=== PATIENT | female | born 2000 | race African-American/Black ===

== ENCOUNTER 2021-04-26 08:24 | Emergency (ER) | payer MEDICAID ==
[~2021-04-26] VITALS: Ht 162.6 cm; Wt 73.0 kg
[2021-04-26 08:27] VITALS: BP 123/84
[2021-04-26 08:50] LABS: BASOPHILS % 0.3 % (0.0-2.0); HEMATOCRIT. 39.6 % (36.0-48.0); HEMOGLOBIN. 13.7 g/dL (12.0-16.0); LYMPHOCYTES % 22.3 % (20.0-50.0); MEAN CORPUSCULAR HEMOGLOBIN 30.6 pg (28.0-32.0); MEAN CORPUSCULAR VOLUME 88.6 fL (81.0-99.0); MONOCYTES % 4.4 % (2.0-8.0); PLATELET 262 x1000/uL (130-400); RED BLOOD CELL COUNT 4.48 mill/uL (4.2-5.4); RED CELL DISTRIBUTION WIDTH 13.2 % (11.6-14.6)
[2021-04-26] MEDS ORDERED: KETOROLAC 60MG/2ML VIAL IM ONE (09:15)
[2021-04-26] MEDS ORDERED: IBUP-2029 MT (09:36)
== END 2021-04-26 09:46 | disposition home or self-care (01) ==
LOC: ER 08:29
DX: S09.90XA Unspecified injury of head, initial encounter (principal); R59.1 Generalized enlarged lymph nodes; M54.2 Cervicalgia; W22.8XXA Striking against or struck by other objects, initial encounter; Y93.89 Activity, other specified; Y92.89 Other specified places as the place of occurrence of the external cause; Y99.8 Other external cause status
CPT/HCPCS: 36415; 70450; 72125; 85025; 96372; 99285; J1885

== ENCOUNTER 2021-04-29 10:30 | Emergency (ER) | payer MEDICAID ==
[~2021-04-29] VITALS: Ht 162.6 cm; Wt 73.0 kg
[~2021-04-29 10:30] MED LIST: IBUP-2029 MT
[2021-04-29 10:35] VITALS: BP 110/66
[2021-04-29] MEDS ORDERED: BACITRACIN ZINC OINT UDPKT TOP ONE (11:15)
[2021-04-29] MEDS ORDERED: LIDOCAINE HCL/PF 1% 10 MG/ML 5ML VIAL IJ ONE (11:15)
[2021-04-29] MEDS ORDERED: SULF1TAB48 PO (11:58)
[2021-04-29] MEDS ORDERED: CEPH500T PO (11:58)
[2021-04-29] MEDS ORDERED: IBUP-2029 MT (11:58)
== END 2021-04-29 12:05 | disposition home or self-care (01) ==
LOC: ER 10:30
DX: L02.811 Cutaneous abscess of head [any part, except face] (principal)
CPT/HCPCS: 99283; J3490; Z7610

== ENCOUNTER 2021-05-01 12:17 | Emergency (ER) | payer MEDICAID ==
[~2021-05-01] VITALS: Ht 162.6 cm; Wt 73.0 kg
[~2021-05-01 12:17] MED LIST changes: +CEPH500T PO; +SULF1TAB48 PO
[2021-05-01 13:13] VITALS: BP 112/70
== END 2021-05-01 13:14 | disposition home or self-care (01) ==
LOC: ER 12:17
DX: Z48.00 Encounter for change or removal of nonsurgical wound dressing (principal)
CPT/HCPCS: 99281

== ENCOUNTER 2021-06-15 11:11 | Emergency (ER) | payer OTHER, MEDICAID ==
[~2021-06-15] VITALS: Ht 162.6 cm; Wt 73.0 kg
[2021-06-15 11:40] VITALS: BP 145/82
[2021-06-15] MEDS ORDERED: BACITRACIN ZINC OINT UDPKT TOP ONE (12:00)
[2021-06-15] MEDS ORDERED: LIDOCAINE HCL/EPINEPHRINE 1%-EPI 1:100,000 20 ML VIAL INFIL ONE (12:00)
[2021-06-15] MEDS ORDERED: SULF1TAB48 MT (13:00)
[2021-06-15] MEDS ORDERED: ACET-2708 MT (13:00)
== END 2021-06-15 13:13 | disposition home or self-care (01) ==
LOC: ER 11:11
DX: L02.811 Cutaneous abscess of head [any part, except face] (principal); R03.0 Elevated blood-pressure reading, without diagnosis of hypertension
CPT/HCPCS: 10060; 99283; J3490

== ENCOUNTER 2022-02-26 10:00 | Emergency (ER) | payer OTHER, MEDICAID ==
[~2022-02-26] VITALS: Ht 162.6 cm; Wt 77.0 kg
[~2022-02-26 10:00] MED LIST changes: +ACET-2708 MT; +SULF1TAB48 MT
[2022-02-26 10:13] VITALS: BP 117/76
[2022-02-26] MEDS ORDERED: PSEU120T56 MT (10:26)
== END 2022-02-26 10:50 | disposition home or self-care (01) ==
LOC: ER 10:00
DX: R09.81 Nasal congestion (principal); H92.01 Otalgia, right ear; Z79.899 Other long term (current) drug therapy
CPT/HCPCS: 99282